=== PATIENT | female | born 1975 | race Caucasian/White ===

== ENCOUNTER 2018-06-15 20:06 | Emergency (ER) | payer OTHER ==
[2018-06-15 20:30] VITALS: BP 112/66
[2018-06-15] MEDS ORDERED: Gelfoam 12-7 ADSORBABL SPONGE* 1 EA SPONGE TOPICAL ONE (20:37)
--- NOTE | 2018-06-15 20:41 | UC ---
Laceration HPI - HPI Summary HPI Summary: avulsion of skin to top of left 3 rd with a paring knife about 1 hour prior to arrival---n/m/c intact distally---oozing small amount of blood - History Of Current Complaint Chief Complaint: UCLaceration Stated Complaint: LACERATION LEFT MIDDLE FINGER Time Seen by Provider: 06/15/18 20:26 Hx Obtained From: Patient Hx Last Menstrual Period: 05/18/18 on BCP Laceration Location: Finger - left 3rd pip Mechanism Of Injury: Sharp Trauma Onset/Duration: Sudden Onset Pain Intensity: 5 Pain Scale Used: 0-10 Numeric Aggravating Factors: Nothing Related History: Dominant Hand Right - Allergies/Home Medications Allergies/Adverse Reactions: Allergies Allergy/AdvReac Type Severity Reaction Status Date / Time No Known Allergies Allergy Verified 06/15/18 20:24 Home Medications: Home Medications Gabapentin CAP(*) [Neurontin 100 mg CAP(*)] 100 mg PO TID PRN 06/15/18 [History Confirmed 06/15/18] Levothyroxine TAB* [Synthroid TAB*] 25 mcg PO 0800 06/15/18 [History Confirmed 06/15/18] Norethindrone-Ethinyl Estrad [Dasetta ] 1 tab PO DAILY 06/15/18 [History Confirmed 06/15/18] traZODone TAB* [Desyrel TAB*] 100 mg PO BEDTIME 06/15/18 [History Confirmed 07/01] PMH/Surg Hx/FS Hx/Imm Hx Previously Healthy: No Endocrine History: Hypothyroidism - Surgical History Surgical History: Yes Surgery Procedure, Year, and Place: right hand. kidney stones - Family History Known Family History: Positive: None - Social History Occupation: Employed Full-time Lives: With Family Alcohol Use: Occasionally Substance Use Type: None Smoking Status (MU): Never Smoked Tobacco - Immunization History Most Recent Tetanus Shot: less than 10 years ago Review of Systems All Other Systems Reviewed And Are Negative: Yes Constitutional: Positive: Negative Skin: Positive: Other - skin avulasion left 3rd pip knuckle Eyes: Positive: Negative ENT: Positive: Negative Respiratory: Positive: Negative Cardiovascular: Positive: Negative Gastrointestinal: Positive: Negative Genitourinary: Positive: Negative Motor: Positive: Negative Neurovascular: Positive: Negative Musculoskeletal: Positive: Negative Neurological: Positive: Negative Psychological: Positive: Negative Is Patient Immunocompromised?: No Physical Exam Triage Information Reviewed: Yes Appearance: Well-Appearing, No Pain Distress, Well-Nourished Vital Signs: Initial Vital Signs Temp 98.6 F 06/15/18 20:27 Pulse 78 06/15/18 20:27 Resp 14 06/15/18 20:27 BP 112/66 06/15/18 20:27 Pulse Ox 97 06/15/18 20:27 Vital Signs Reviewed: Yes Eye Exam: Normal Eyes: Positive: Conjunctiva Clear ENT Exam: Normal ENT: Positive: Normal ENT inspection, Hearing grossly normal. Negative: Trismus , Muffled voice, Hoarse voice Dental Exam: Normal Neck exam: Normal Neck: Positive: Supple, Nontender Respiratory Exam: Normal Respiratory: Positive: Chest non-tender, No respiratory distress, No accessory muscle use Cardiovascular Exam: Normal Cardiovascular: Positive: RRR, Pulses Normal, Brisk Capillary Refill Musculoskeletal Exam: Normal Musculoskeletal: Positive: Strength Intact, ROM Intact, No Edema Neurological Exam: Normal Neurological: Positive: Alert, Muscle Tone Normal Psychological Exam: Normal Skin Exam: Normal Laceration Repair - Laceration Repair 1 Description: Irregular : No Repair Necessary Laceration Size After Repair: Length (cm) - 1, Width (mm) - 0,5 Modified For Repair: No Cleansing Completed Via Routine Prep: Yes Irrigation With Pressure Irrigation Device: Yes Closure Material: Skin Adhesive - gel form used for helostastis dressing and splint applied Re-Evaluation - Re-Evaluation First Eval Change: Improved - excellen bleeding control--- Laceration Course/Dx - Course/Dx Course Of Treatment: gel form---dressing splint allow gel form to fall away on its own re-check prn - Diagnosis Provider Diagnosis: Avulsion of skin of finger Discharge - Sign-Out/Discharge Documenting (check all that apply): Patient Departure All imaging exams completed and their final reports reviewed: No Studies - Discharge Plan Condition: Stable Disposition: HOME Patient Education Materials: Skin Avulsion (ED) Referrals: Jag Calero DO [Primary Care Provider] - If Needed - Billing Disposition and Condition Condition: STABLE Disposition: Home
== END 2018-06-15 20:55 | disposition home or self-care (01) ==
LOC: UCCORT 20:06
DX: S61.203A Unspecified open wound of left middle finger without damage to nail, initial encounter (principal); W26.0XXA Contact with knife, initial encounter; Y92.9 Unspecified place or not applicable; E03.9 Hypothyroidism, unspecified
CPT/HCPCS: 99202; A9270-GY; G0463

== ENCOUNTER 2018-11-16 14:04 | Emergency (ER) | payer OTHER ==
[2018-11-16 15:01] VITALS: BP 129/69
[2018-11-16] MEDS ORDERED: Ibuprofen TAB* 600 MG PO ONE (15:01)
--- NOTE | 2018-11-16 15:22 | UC ---
Hand/Wrist HPI - HPI Summary HPI Summary: FOOSH ONTO RIGHT HAND YESTERDAY. NO NUMBNESS/TINGLING. HAS RIGHT WRIST PAIN AND PAIN IN THUMB AND INDEX FINGER. - History Of Current Complaint Chief Complaint: UCUpperExtremity Stated Complaint: HAND INJURY Time Seen by Provider: 11/16/18 14:59 Hx Obtained From: Patient Hx Last Menstrual Period: 1 week Onset/Duration: Sudden Onset, Lasting Hours, Still Present Severity Initially: Moderate Severity Currently: Moderate Pain Intensity: 6 Pain Scale Used: 0-10 Numeric Character Of Pain: Sharp Aggravating Factor(s): Movement Alleviating Factor(s): Rest Associated Signs And Symptoms: Negative: Numbness/Tingling Related History: Dominant Hand Right - Allergies/Home Medications Allergies/Adverse Reactions: Allergies Allergy/AdvReac Type Severity Reaction Status Date / Time No Known Allergies Allergy Verified 11/16/18 15:01 PMH/Surg Hx/FS Hx/Imm Hx Endocrine History: Hypothyroidism, Dyslipidemia - Surgical History Surgical History: Yes Surgery Procedure, Year, and Place: right hand. kidney stones - Family History Known Family History: Positive: None - Social History Alcohol Use: Occasionally Substance Use Type: None Smoking Status (MU): Never Smoked Tobacco - Immunization History Most Recent Tetanus Shot: less than 10 years ago Review of Systems All Other Systems Reviewed And Are Negative: Yes Constitutional: Positive: Negative Skin: Positive: Negative Respiratory: Positive: Negative Cardiovascular: Positive: Negative Gastrointestinal: Positive: Negative Musculoskeletal: Positive: Arthralgia, Decreased ROM Physical Exam Triage Information Reviewed: Yes Appearance: Well-Appearing, No Pain Distress, Well-Nourished Vital Signs: Initial Vital Signs Temp 98.8 F 11/16/18 14:57 Pulse 70 11/16/18 14:57 Resp 16 11/16/18 14:57 BP 129/69 11/16/18 14:57 Pulse Ox 100 11/16/18 14:57 Vital Signs Reviewed: Yes Eyes: Positive: Conjunctiva Clear ENT: Positive: Hearing grossly normal Neck: Positive: Supple Respiratory: Positive: No respiratory distress, No accessory muscle use Cardiovascular: Positive: Pulses Normal Abdomen Description: Positive: Soft Musculoskeletal: Positive: No Edema, ROM Limited @ - RIGHT WRIST AND THUMB, Other: - MILDLY TENDER RIGHT WRIST SNUFFBOX AND OVER THUMB/THENAR EMINENCE Neurological: Positive: Alert Psychological: Positive: Age Appropriate Behavior Skin: Negative: Rashes Diagnostics - Radiology RIGHT HAND/WRIST XRAYS Radiology Interpretation Completed By: Radiologist Summary of Radiographic Findings: No fracture or traumatic malalignment of the right wrist/hand. Hand/Wrist Course/Dx - Course Course Of Treatment: X-RAYS TODAY UNREMARKABLE FOR ACUTE INJURY. HAVE PLACED PATIENT IN A THUMB SPICA SPLINT AND PROVIDED A SLING FOR SYMPTOM RELIEF. IF HER SYMPTOMS DO NOT IMPROVE OVER THE NEXT COUPLE OF WEEKS SHE WILL FOLLOW-UP WITH ORTHOPEDICS FOR FURTHER EVALUATION. - Differential Dx/Diagnosis Provider Diagnosis: Right wrist sprain Discharge - Sign-Out/Discharge Documenting (check all that apply): Patient Departure All imaging exams completed and their final reports reviewed: Yes - Discharge Plan Condition: Stable Disposition: HOME Patient Education Materials: Wrist Sprain (ED) Forms: *Work Release Referrals: Regla Cristobal MD [Medical Doctor] - 2 Weeks Jag Calero DO [Primary Care Provider] - If Needed Additional Instructions: XRAY TODAY NEGATIVE FOR FRACTURE OR DISLOCATION. YOUR SYMPTOMS SHOULD IMPROVE SIGNIFICANTLY OVER THE NEXT 1-2 WEEKS. WEAR THE SPLINT AT NIGHT AND DURING THE DAY ABLE. IF YOU DO NOT IMPROVE EXPECTED FOLLOW-UP WITH ORTHO. YOU MAY BENEFIT FROM REPEAT IMAGING AT THAT TIME. OTC IBUPROFEN OR ALEVE NEEDED FOR DISCOMFORT. REST, ICE, COMPRESS, ELEVATE. - Billing Disposition and Condition Condition: STABLE Disposition: Home
== END 2018-11-16 16:31 | disposition home or self-care (01) ==
LOC: UCEAST 14:04
DX: S63.501A Unspecified sprain of right wrist, initial encounter (principal); W18.30XA Fall on same level, unspecified, initial encounter; Y92.9 Unspecified place or not applicable; E03.9 Hypothyroidism, unspecified; E78.5 Hyperlipidemia, unspecified
CPT/HCPCS: 99213; A9270-GY; G0463

== ENCOUNTER 2019-06-20 18:29 | Emergency (ER) | payer OTHER ==
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
[2019-06-20] MEDS ORDERED: oxyCODONE/Acetamin 5/325 MG* TAB PO ONE ×2 (18:43→20:13)
--- OUTSIDE RECORDS SUMMARY | 2019-06-20 19:26 | XMS REPORT | Continuity of Care Document ---
:1975 External Reference #:[id number] Author Name Jag Calero D.O. 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 Onset: 06/01/2016 Low back pain Liana Ramos NP Onset: 02/03/2016 Headache Liana Ramos NP Onset: 02/03/2016 Hemangioma of liver Jag Calero D.O. Onset: 09/11/2016 Family history of stroke Jag Calero D.O. Onset: 10/08/2016 Note: maternal uncle maternal aunt Family history of Parkinson's disease Jag Calero D.O. Onset: 10/08/2016 Note: father/ exposure to [employer] [place] Kidney stone Jag Calero D.O. Onset: 02/08/2017 FH: Thyroid disorder Jag Calero D.O. Onset: 03/28/2018 Note: mother Hypothyroidism Jag Calero D.O. Onset: 03/28/2018 FH: Myocardial infarction Anabelle Rosas N.P. Onset: 02/26/2019 Note: Mat GF [place], decrease 49 Mat 2 uncles, both in 50's Mat Aunt, 60's Social History Type Date Description Comments Sex Unknown Tobacco Use Start: Unknown Patient has never smoked Smoking Status Reviewed: 02/26/19 Patient has never smoked Allergies, Adverse Reactions, Alerts Active Allergies Reaction Severity Comments Date Topiramate Drowsiness 10/28/2015 Medications Active Medications SIG Qnty Indications Ordering Provider Date Tramadol HCL ER 1 by mouth every 10tabs M54.5 Jag Calero, D.O. 2018 200mg day as needed Tablets ER 24HR M25.531 Triamcinolone Acetonide apply to rash twice 80gm R21 Jag Balbina Galilea, 2018 0.025% a day for a week D.O. Cream and then as needed. Levocetirizine 1 by mouth every 30tabs J31.0 Jag Calero, 08/14/2018 Dihydrochloride day D.O. 5mg Tablets Trazodone HCL 1 tab by mouth 30tabs G47.01 Jag Calero, 03/31/2018 100mg Tablets every at bedtime D.O. Levothyroxine Sodium 1 by mouth every 30tabs E03.1 Jag Calero, 2017 25mcg morning 1 hour D.O. Tablets before breakfast Dasetta 1 by mouth every 28tabs Z30.09 Jag Calero, 10/23/2014 1-35mg-mcg Tablets day D.O. Myrbetriq 1 by mouth every R32 Unknown 25mg Tablets ER 24HR day- urology Immunizations CPT Code Status Date Vaccine Reaction Lot # [id number] Given 02/26/2019 Influenza Virus No Reaction [id number] Vaccine,Quadrivalent,Split,Preserv Free 3 Yrs+ [id number] Given 03/28/2018 Influenza Virus No Reaction [id number] Vaccine,Quadrivalent,Split,Preserv Free 3 Yrs+ Vital Signs Date Vital Result Comment 02/26/2019 9:29am Body Temperature 98.1 F forehead Weight 126.00 lb Heart Rate 83 /min BP Systolic 124 mmHg L Arm BP Diastolic 82 mmHg L Arm Respiratory Rate 15 /min Height 65 inches 5'5" BMI (Body Mass Index) 21.0 kg/m2 O2 % BldC Oximetry 99 % Room Air Left ear audiology results 20 Right ear audiology results 20 Right Visual Acuity Distance 20/30 Left Visual Acuity Distance 20/30 Height in cm's 165.1 cm 12/26/2018 3:58pm Body Temperature 98.1 F Weight 125.00 lb Heart Rate 85 /min BP Systolic 124 mmHg L Arm BP Diastolic 74 mmHg L Arm Respiratory Rate 17 /min Height 65 inches 5'5" BMI (Body Mass Index) 20.8 kg/m2 O2 % BldC Oximetry 98 % Room Air Height in cm's 165.1 cm Results Test Acquired Date Facility Test Result H/L Range Note Order 02/26/2019 [facility] EKG <pending> [phone] Procedures Date Code Description Status 02/26/2019 19663 Visual Screening Test Completed 02/26/2019 02131 Electrocardiogram Complete Completed 02/26/2019 97333 Screening Hearing Test Completed Medical Devices Description No Information Available Encounters Type Date Location Provider Dx Diagnosis Office Visit 02/26/2019 [facility] Anabelle Rosas, Z00.00 Encntr for 10:00a [facility] [facility] general adult medical exam w/o abnormal findings E78.2 Mixed hyperlipidemia R00.2 Palpitations Z23 Encounter for immunization Office Visit 12/26/2018 4:00p [facility] Jag Calero M54.5 Low back [facility] D.[facility]. pain M25.531 Pain in right wrist R21 Rash and other nonspecific skin eruption Assessments Date Code Description Provider 06/05/2019 M54.5 Low back pain Elda VasquezO. 02/26/2019 Z00.00 Encounter for general adult medical Anabelle Rosas, N.P. examination without abnormal findings 02/26/2019 E78.2 Mixed hyperlipidemia Anabelle Rosas, N.P. 02/26/2019 R00.2 Palpitations Anabelle Rosas, N.P. 02/26/2019 Z23 Encounter for immunization Anabelle Rosas, N.P. 12/26/2018 M54.5 Low back pain Itzel Vasquez.O. 12/26/2018 M25.531 Pain in right wrist Elda VasquezO. 12/26/2018 R21 Rash and other nonspecific skin eruption Jag Calero D.O. Plan of Treatment No Information Available Functional Status Description No Information Available Mental Status Description No Information Available Referrals Refer to Reason for Referral Status Appt Date [facility] DR Kaminski Dear Doctor: I am referring this Closed patient due to abnormal EKG and strong family history With this referral you will also receive the followin. Problem List; 2. Medication List; 3. Allergy List; 4. Last labs; 5. Last Progress Note. If you do not receive the above, please contact our [employer]. As always, we thank you for the great service you provide to our patients. Sincerely, Anabelle Rosas, MSN,ANP-C [address] [id number] [phone]
--- OUTSIDE RECORDS SUMMARY | 2019-06-20 19:26 | XMS REPORT | Summary of Care ---
:1975 Author Organization [facility] Address [address] [place] [address] Care Team Providers Name Role Phone Jag Calero DO Primary Care Provider Reason for Visit Reason Comments Heart Problem Encounter Details Date Type Department Care Team Description 04/22/2019 Office Visit [facility] Latanya Kaminski MD Coronary artery [place] [address] [facility] disease involving [address], [place] coronary artery [address] [id number] of [place], [place] [phone] without angina [phone] pectoris (Primary Dx) Allergies No Known Allergiesdocumented as of this encounter (statuses as of 04/22/2019) Medications Medication Sig Dispensed Refills Start End Date Status Date norethindrone-ethi Take 1 tablet 0 Active nyl estradiol by mouth (NECON) 0.5-35 daily. MG-MCG per tablet topiramate Take 2 tablets 60 tablet 2 Active (TOPAMAX) 50 MG by mouth Two 5 tabletIndications: Times Daily. Neuropathic pain trazodone Take 1 tablet 30 tablet 11 Active (DESYREL) 100 MG by mouth 6 tabletIndications: nightly. Sleep disorder Diclofenac Sodium Apply 4 g 1 Tube 1 Active (VOLTAREN) 1 % topically 6 GELIndications: Three times Myofascial pain daily as needed. traMADol HCl ER Take 1 capsule 0 Active 200 MG Oral by mouth daily Capsule Extended Release 24 Hour Levothyroxine Take 1 tablet 0 Active Sodium 25 MCG Oral by mouth daily 9 Tablet (SYNTHROID, LEVOTHROID) celecoxib Take 2 60 capsule 2 04/22/19 Discontinued (CELEBREX) 100 MG capsules by 5 20 (Therapy capsuleIndications mouth Two completed) : Myofascial pain Times Daily. syndrome, cervical, Lumbar paraspinal muscle spasm, Lumbar facet joint pain gabapentin 300 in am, 300 120 capsule 0 04/22/19 Discontinued (NEURONTIN) 300 MG at noon, 600 6 20 (Therapy capsuleIndications qhs. completed) : Myofascial pain syndrome, cervical, Lumbar paraspinal muscle spasm, Lumbar facet joint pain tramadol (ULTRAM) Take 50 mg by 0 04/22/19 Discontinued 50 MG tablet mouth Two 20 (Formulary Times Daily change) valacyclovir TAKE 1 TABLET 0 04/22/19 Discontinued (VALTREX) 500 MG 4 times daily 3 20 (Therapy tablet MDD:4 completed) documented as of this encounter (statuses as of 04/22/2019) Active Problems Problem Noted Date Liver hemangioma 12/14/2016 Lumbar facet joint pain 05/27/2013 Myofascial pain syndrome, cervical 05/27/2013 Lumbar paraspinal muscle spasm 05/27/2013 Post-traumatic osteoarthritis of both knees 05/27/2013 Left leg paresthesias 05/27/2013 Thyroid disease documented as of this encounter (statuses as of 04/22/2019) Social History Tobacco Use Types Packs/Day Years Used Date Never Smoker Smokeless Tobacco: Never Used Alcohol Use Drinks/Week oz/Week Comments Yes 0 Glasses of wine 0.0 socially 06/2016 Sex Assigned at Date Recorded Not on file Job Start Date Occupation Industry Not on file Not on file Not on file Travel History Travel Start Travel End No recent travel history available. documented as of this encounter Last Filed Vital Signs Vital Sign Reading Time Taken Comments Blood Pressure 118/82 04/22/2019 10:53 AM EST Pulse 72 04/22/2019 10:53 AM EST Temperature - - Respiratory Rate 16 04/22/2019 10:53 AM EST Oxygen Saturation 98% 04/22/2019 10:53 AM EST Inhaled Oxygen Concentration - - Weight 63.5 kg (140 lb) 04/22/2019 10:53 AM EST Height 157.5 cm (5' 2") 04/22/2019 10:53 AM EST Body Mass Index 25.61 04/22/2019 10:53 AM EST documented in this encounter Progress Notes Latanya Kaminski MD - 04/22/2019 11:00 AM EST Subjective: Regla Alejandra is a 44 y.o. female who is here to discuss abnormal ECG. This consultation wasrequested by Anabelle Rosas NP. Found to have incomplete RBBB on ECG. Patient totally asymptomatic from cardiac standpoint with good effort tolerance. Has history of premature CAD among maternal siblings. Regla has a past medical history of Arthritis, Herpes simplex type 2 infection, Insomnia, Low back pain, and Thyroid disease. Regla has a past surgical history that includes Hand surgery. Her family history includes Heart attack in her maternal uncle; Heart disease in her maternal aunt and mother. Regla reports that she has never smoked. She has never used smokeless tobacco. She reports current alcohol use. She reports that she does not use drugs. Regla has a current medication list which includes the following prescription(s): diclofenac sodium, levothyroxine, norethindrone-ethinyl estradiol, tramadol hcl, trazodone, and topiramate. Review of Systems A comprehensive review of systems was negative. Objective: Physical Exam Visit Vitals BP 118/82 (BP Location: Right arm, Patient Position: Sitting, Cuff size: Regular ) Pulse 72 Resp 16 Ht 1.575 m Wt 63.5 kg (140 lb) SpO2 98% BMI 25.61 kg/m General appearance: alert, appears stated age and cooperative Neck: no adenopathy, no carotid bruit, no JVD, supple, symmetrical, trachea midline and thyroid not enlarged, symmetric, no tenderness/mass/nodules Lungs: clear to auscultation bilaterally Heart: regular rate and rhythm, S1, S2 normal, no murmur, click, rub or gallop Abdomen: soft, non-tender; bowel sounds normal; no masses, no organomegaly Extremities: extremities normal, atraumatic, no cyanosis or edema Pulses: 2+ and symmetric Cardiographics ECG: normal sinus rhythm and incomplete RBBB . Echocardiogram: not done Lab Review Chol 200, HDL 82, TG 75, LDL 102 on 08/12/18. Assessment: Low risk for CAD. Plan: Don't think further work up necessary at present. Lipids and BP at target. F /U PRN. documented in this encounter Plan of Treatment Health Maintenance Due Date Last Done Comments MMR Vaccines (1 of 1 - Standard 1974 series) Varicella Vaccines (1 of 2 - 1974 2-dose childhood series) DTaP,Tdap,and Td Vaccines (1 - 02/08/1980 Tdap) HIV Screening 1986 Cervical Cancer Screening 5 years 1994 Influenza Vaccine 01/13/2019 Pneumococcal Vaccine: 65+ Years (1 2038 of 2 - PCV13) HIB Vaccines Aged Out No longer eligible based on patient's age to complete this topic Hepatitis A Vaccines Aged Out No longer eligible based on patient's age to complete this topic Hepatitis B Vaccines Aged Out No longer eligible based on patient's age to complete this topic IPV Vaccines Aged Out No longer eligible based on patient's age to complete this topic Pneumococcal Vaccine: Pediatrics Aged Out No longer eligible based on (0 to 5 Years) and At-Risk patient's age to complete this Patients (6 to 64 Years) topic documented as of this encounter Results Not on filedocumented in this encounter Visit Diagnoses Diagnosis Coronary artery disease involving [place] coronary artery of [place] heart without angina pectoris - Primary documented in this encounter
[2019-06-20] MEDS ORDERED: Ibuprofen TAB* 600 MG PO ONE (20:14)
[2019-06-20 20:53] VITALS: BP 127/68
== END 2019-06-20 20:52 | disposition home or self-care (01) ==
LOC: ED 18:29
DX: S82.832A Other fracture of upper and lower end of left fibula, initial encounter for closed fracture (principal); V03.10XA Pedestrian on foot injured in collision with car, pick-up truck or van in traffic accident, initial encounter; Y93.01 Activity, walking, marching and hiking; Y92.488 Other paved roadways as the place of occurrence of the external cause; E07.9 Disorder of thyroid, unspecified
CPT/HCPCS: 99282; A9270-GY

== ENCOUNTER 2019-06-29 06:50 | Day surgery (SDC) | payer OTHER ==
[~2019-06-29 06:50] MED LIST: Buffered Lidocaine 1% SYRIN* 1 ML/SYRINGE INTRADERM ONE; Famotidine IV* 10 MG/ML 2 ML (20 mg) IV ONE; Lactated Ringers 1000 ML Bag* 1,000 ML IV SCH
[2019-06-29] MEDS ORDERED: Famotidine IV* 10 MG/ML 2 ML (20 mg) ONE (07:19)
[2019-06-29] MEDS ORDERED: ceFAZolin 2 GM PREMIX in ORs 2 GM/50 ML BAG ONE (07:19)
[2019-06-29] MEDS ORDERED: Dexamethasone IV* 4 MG/ML 1 ML (4 MG) ONE (07:58)
[2019-06-29] MEDS ORDERED: Ketorolac INJ* 30 MG/ML 1 ML VIAL ONE (07:58)
[2019-06-29] MEDS ORDERED: Propofol* 10 MG/ML 20 ML BTL ONE (07:58)
[2019-06-29] MEDS ORDERED: Ondansetron INJ* 2 MG/ML VIAL ONE ×2 (07:58→10:33)
[2019-06-29] MEDS ORDERED: Lidocaine 2% PF * 5 ML VIAL ONE (07:58)
[2019-06-29] MEDS ORDERED: KETAMINE HCL* 50 MG/ML 10 ML VIAL ONE (07:59)
[2019-06-29] MEDS ORDERED: fentaNYL* 50 MCG/ML 2 ML VIAL (100 MCG VIAL) ONE ×3 (07:59→11:17)
[2019-06-29] MEDS ORDERED: Midazolam* 1 MG/ML 5 ML VIAL (5 MG) ONE (07:59)
[2019-06-29] MEDS ORDERED: Bupivacaine 0.5%* 50 ML MDV VIAL ONE (09:04)
[2019-06-29] MEDS ORDERED: Cisatracurium* 2 MG/ML MDV 5 ML ONE (09:21)
[2019-06-29] MEDS ORDERED: HYDROmorphone INJ1* 1 MG/ML SYRINGE ONE ×2 (09:43→10:48)
[2019-06-29] MEDS ORDERED: Neostigmine Methylsulfate* 1 MG/ML 10 ML VIAL (1 mg/ml) ONE (10:07)
[2019-06-29] MEDS ORDERED: Glycopyrrolate IV* 0.2 MG/ML 1 ML VIAL ONE (10:07)
[2019-06-29] MEDS ORDERED: Acetaminophen IV 1GM/100ML * 1,000 MG/100 ML VIAL IVPB ONE (10:29)
[2019-06-29] MEDS ORDERED: Naloxone* 0.4 MG/ML 1 ML VIAL IV PRN (10:29)
[2019-06-29] MEDS ORDERED: Ondansetron INJ* 2 MG/ML VIAL IV PRN (10:29)
[2019-06-29] MEDS: fentaNYL* 50 MCG/ML 2 ML VIAL (100 MCG VIAL) IV PRN ×3 (10:36→11:18)
[2019-06-29] MEDS: HYDROmorphone INJ1* 1 MG/ML SYRINGE IV PRN ×2 (10:49→11:00)
[2019-06-29 12:08] VITALS: BP 131/81
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
== END 2019-06-29 12:13 | disposition home or self-care (01) ==
LOC: OR 06:50
PROVIDERS: ATTEND Orthopaedic Surgery
DX: S82.832A Other fracture of upper and lower end of left fibula, initial encounter for closed fracture (principal); V03.10XA Pedestrian on foot injured in collision with car, pick-up truck or van in traffic accident, initial encounter; Y93.89 Activity, other specified; Y92.410 Unspecified street and highway as the place of occurrence of the external cause; Y99.0 Civilian activity done for income or pay; E03.9 Hypothyroidism, unspecified; F41.8 Other specified anxiety disorders
CPT/HCPCS: 76000; 81025; C1713; J0690; J1100; J1170; J1885; J2250; J2405; J2704; J2710; J3010; J3490